=== PATIENT | male | born 1960 | race Hispanic/Latino ===

== ENCOUNTER 2018-08-17 09:30 | Outpatient (CLI) | payer BC ==
--- NOTE | 2018-08-17 10:07 | CT ---
FExam: Noncontrast chest CT; CT lung scan low dose HISTORY: Long-term smoker. COMPARISON: None TECHNIQUE: Low-dose screening lung CT is performed utilizing institutional protocol FINDINGS: Lung screening specific (LUNG-RADS): The lungs are clear of any infiltrative process. No bronchiectat ic change. No pulmonary nodules. No emphysematous change demonstrated. Potential significant incidentals (lung RADS category S): The before meals ascending aorta is 4.2 cm in AP dimension. There are prominent coronary calcifications. Post op sternotomy changes noted. Pulmonary incidentals:None Other incidentals: Visualized liver parenchyma shows no focal findings. IMPRESSION: 1. Lung RADS 1-negative 2. Lung Rask category S: Incidental note is made of an AP dimension of the ascending aorta at 4.2 cm. 3. Other incidentals as above. Recommendation: Continued routine annual low-dose lung screening CT. Follow-up in one year.
== END 2018-08-17 09:31 | disposition home or self-care (01) ==
LOC: CT 09:30
PROVIDERS: ATTEND Internal Medicine
DX: Z12.2 Encounter for screening for malignant neoplasm of respiratory organs (principal); Z87.891 Personal history of nicotine dependence
CPT/HCPCS: G0297